=== PATIENT | female | born 1935 | race Caucasian/White ===

== ENCOUNTER 2022-11-25 17:31 | Inpatient (IN) | payer MEDICARE, OTHER ==
[~2022-11-25] VITALS: Ht 170.2 cm; Wt 63.5 kg
[2022-11-25] MEDS ORDERED: AMLO-212 PO (18:02)
[2022-11-25] MEDS ORDERED: MELO-107 PO (18:02)
[2022-11-25] MEDS ORDERED: DONE10TA44 PO (18:02)
[2022-11-25] MEDS ORDERED: TRAZ-182 PO (18:02)
[2022-11-25] MEDS ORDERED: ATOR10TA PO (18:02)
[2022-11-25] MEDS ORDERED: LEVO50TA8 PO (18:02)
[2022-11-25] MEDS ORDERED: HYDR-894 PO (18:02)
[2022-11-25] MEDS ORDERED: FURO40TA5 PO (18:02)
[2022-11-25] MEDS ORDERED: DULO60CA45 PO (18:02)
[2022-11-25] MEDS ORDERED: DESM0.1T PO (18:02)
[2022-11-25 18:31] LABS: BASOPHILS # (AUTO) 0.3 K/UL (0.0-0.2); BASOPHILS % (AUTO) 2.9 % (0.0-2.0); EOSINOPHILS # (AUTO) 0.3 K/uL (0.0-0.7); EOSINOPHILS % (AUTO) 2.5 % (0.0-7.0); LYMPHOCYTES # (AUTO) 2.4 K/uL (0.8-4.8); LYMPHOCYTES % (AUTO) 22.6 % (20.5-51.5); MEAN CORPUSCULAR HEMOGLOBIN 30.4 uug (24.7-32.8); MEAN CORPUSCULAR HGB CONC 33 g/dL (32.3-35.6); MEAN CORPUSCULAR VOLUME 91.1 fL (75.5-95.3); MONOCYTES # (AUTO) 0.5 K/uL (0.1-1.30); NEUTROPHILS # (AUTO) 7.1 K/uL (1.8-8.9); PLATELET COUNT (AUTO) 370 K/uL (179-408); RED BLOOD CELL COUNT(AUTO) 4.28 MIL/uL (3.63-4.92); RED CELL DISTRIBUTION WIDTH 12.9 % (12.3-17.7); WHITE BLOOD COUNT (AUTO) 10.6 K/uL (3.8-11.8)
[2022-11-25 18:37] LABS: DIFFERENTIAL COMMENT 1
[2022-11-25 18:39] LABS: CALCIUM 9.8 mg/dL (8.5-10.1); CARBON DIOXIDE 33 mmol/L (21-32); CHLORIDE 98 mmol/L (98-107); CREATININE 1.2 mg/dL (0.6-1.3); GLUCOSE 103 mg/dL (74-106); SODIUM SERUM 135 mmol/L (136-145); UREA NITROGEN, BLOOD 23 mg/dL (7-18)
[2022-11-25 18:41] LABS: AMMONIA < 10 umol/L (11-32)
[2022-11-25 18:43] LABS: ETHANOL < 3 MG/DL (0-10)
[2022-11-25 18:44] LABS: *BILIRUBIN,URIN NEGATIVE (NEGATIVE); *BLOOD, URINE NEGATIVE (NEGATIVE); *CLARITY,URINE CLEAR (CLEAR); *COLOR,URINE YELLOW (YELLOW); *KETONES,URINE NEGATIVE (NEGATIVE); *PROTEIN,URINE NEGATIVE (NEGATIVE); *UROBILINOGEN,URINE 0.2 E.U./dl (NORMAL); LEUKOCYTE ESTERASE ,URINE 2+ (NEGATIVE); NITRITE, URINE NEGATIVE (NEGATIVE); PH,URINE 7.5 (5.0-8.0); UGLUCOSE NEGATIVE (NEGATIVE)
[2022-11-25 18:45] LABS: RBC,URINE 0-3 /HPF (0-3)
[2022-11-25 18:53] LABS: *AMPHETAMINE, URINE NEGATIVE (NEGATIVE); *BARBITURATE, URINE NEGATIVE (NEGATIVE); *BENZODIAZEPINE, URINE NEGATIVE (NEGATIVE); *CANNABINOID, URINE NEGATIVE (NEGATIVE); *COCCAINE, URINE NEGATIVE (NEGATIVE); *OPIATE, URINE NEGATIVE (NEGATIVE); *PHENCYCLIDINE SCREEN,URINE NEGATIVE (NEGATIVE); FENTANYL, URINE NEGATIVE (NEGATIVE)
[2022-11-25 18:53] LABS: THYROID STIMULATING HORMONE 2.914 mIU/mL (0.358-3.740)
[2022-11-25 18:54] LABS: ACETAMINOPHEN < 2.0 ug/mL (10-30); ALANINE AMINOTRANSFERASE 18 U/L (14-59); ALBUMIN 3.3 g/dL (3.4-5.0); ALKALINE PHOSPHATASE 87 U/L (50-136); ASPARTATE AMINOTRANSFERASE 18 U/L (15-37); BILIRUBIN,DIRECT 0.1 mg/dL (0.0-0.2); BILIRUBIN,TOTAL 0.2 mg/dL (0.2-1.0); TOTAL PROTEIN, SERUM 7.2 g/dL (6.4-8.2)
[2022-11-25] MEDS ORDERED: ACETAMINOPHEN 325 MG TABLET PO PRN (21:15)
[2022-11-25] MEDS ORDERED: ONDANSETRON 4 MG/2 ML VIAL IV PRN (21:15)
[2022-11-25] MEDS ORDERED: REMEDY ESSENTIAL ZINC PASTE 113 GM TP PRN (21:15)
[2022-11-25] MEDS ORDERED: MAGNESIUM HYDROXIDE 30 ML LIQUID UDC PO PRN (21:15)
[2022-11-25] MEDS ORDERED: CEFTRIAXONE /D5W 50ML IVPB **ER PYXIS IV ONE (22:57)
[2022-11-25] MEDS: CEFTRIAXONE 1 G in IV DEXTROSE 5% 50 ML IV SCH (23:02)
[2022-11-26 02:00] LABS: ABG BASE EXCESS 5.7 mmol/L; ABG HCO3 30.3 mmol/L; ABG PH 7.456 (7.350-7.450); ABG PO2 81.1 mmHg (75.0-100.0); ABG SITE LEFT RADIAL; ABG TOTAL HEMOGLOBIN 13.2 G/dL (12.0-16.0); COHb 0.7 % (0.5-1.5); MetHb 0.3 % (0.0-1.5); O2Hb 95.7 % (94.0-97.0); VENT MODE ROOM AIR
[2022-11-26] MEDS ORDERED: LEVOTHYROXINE SODIUM 50 MCG TABLET ONE (05:55)
[2022-11-26] MEDS ORDERED: hydrALAZINE HCL 25 MG TABLET ONE (06:06)
[2022-11-26] MEDS: LEVOTHYROXINE SODIUM 50 MCG TABLET PO SCH (06:11)
[2022-11-26] MEDS: hydrALAZINE HCL 25 MG TABLET PO SCH ×3 (06:11→21:17)
[2022-11-26 07:04] LABS: BASOPHILS # (AUTO) 0.1 K/UL (0.0-0.2); BASOPHILS % (AUTO) 0.7 % (0.0-2.0); EOSINOPHILS # (AUTO) 0.3 K/uL (0.0-0.7); EOSINOPHILS % (AUTO) 3.7 % (0.0-7.0); HEMATOCRIT 34.4 % (31.2-41.9); HEMOGLOBIN 11.9 g/dL (10.9-14.3); LYMPHOCYTES # (AUTO) 2.5 K/uL (0.8-4.8); LYMPHOCYTES % (AUTO) 30.2 % (20.5-51.5); MEAN CORPUSCULAR HEMOGLOBIN 31.4 uug (24.7-32.8); MEAN CORPUSCULAR HGB CONC 35 g/dL (32.3-35.6); MEAN CORPUSCULAR VOLUME 90.5 fL (75.5-95.3); MONOCYTES # (AUTO) 0.8 K/uL (0.1-1.30); MONOCYTES % (AUTO) 9.1 % (0.0-11.0); NEUTROPHILS # (AUTO) 4.6 K/uL (1.8-8.9); NEUTROPHILS % (AUTO) 56.3 % (38.5-71.5); PLATELET COUNT (AUTO) 322 K/uL (179-408); RED CELL DISTRIBUTION WIDTH 12.8 % (12.3-17.7); WHITE BLOOD COUNT (AUTO) 8.3 K/uL (3.8-11.8)
[2022-11-26 07:25] LABS: DIFFERENTIAL COMMENT 1
[2022-11-26 07:56] LABS: CALCIUM 8.8 mg/dL (8.5-10.1); CARBON DIOXIDE 31 mmol/L (21-32); CHLORIDE 104 mmol/L (98-107); GLUCOSE 94 mg/dL (74-106); MAGNESIUM 2.2 mg/dL (1.8-2.4); PHOSPHOROUS 4.2 mg/dL (2.5-4.9); POTASSIUM 4.1 mmol/L (3.5-5.1); SODIUM SERUM 140 mmol/L (136-145); UREA NITROGEN, BLOOD 17 mg/dL (7-18)
[2022-11-26] MEDS ORDERED: FUROSEMIDE 40 MG TABLET PO SCH (09:00)
[2022-11-26] MEDS: AMLODIPINE 5 MG TABLET PO SCH ×2 (09:24→17:00)
[2022-11-26] MEDS: MELOXICAM 7.5 MG TABLET PO SCH (09:24)
[2022-11-26] MEDS: DONEPEZIL 10 MG TABLET PO SCH (09:25)
[2022-11-26] MEDS: DULOXETINE 60 MG CAPSULE.DR PO SCH (09:25)
[2022-11-26] MEDS: CLONIDINE HCL 0.1 MG TABLET PO PRN (09:28)
[2022-11-26 13:45] VITALS: BP 140/51; TEMP 98; O2SAT 96
[2022-11-26 14:40] VITALS: BP 135/81; TEMP 97.6
[2022-11-26] MEDS: DESMOPRESSIN 0.1 MG TABLET PO SCH (17:00)
[2022-11-26 17:05] VITALS: BP 155/59; TEMP 98.3; O2SAT 97
[2022-11-26 20:00] VITALS: BP 135/50; TEMP 97; O2SAT 97
[2022-11-26] MEDS: TRAZODONE 50 MG TABLET PO SCH (20:48)
[2022-11-26] MEDS: ATORVASTATIN 10 MG TABLET PO SCH (20:48)
[2022-11-26] MEDS ORDERED: CEFTRIAXONE /D5W 50ML IVPB **ER PYXIS IV ONE (20:59)
[2022-11-26] MEDS: CEFTRIAXONE 1 G in IV DEXTROSE 5% 50 ML IV SCH (21:11)
[2022-11-27 04:00] VITALS: BP 157/59; TEMP 97.9; O2SAT 98
[2022-11-27] MEDS: hydrALAZINE HCL 25 MG TABLET PO SCH ×3 (05:39→21:34)
[2022-11-27] MEDS: LEVOTHYROXINE SODIUM 50 MCG TABLET PO SCH (06:57)
[2022-11-27 07:21] LABS: BASOPHILS % (AUTO) 0.4 % (0.0-2.0); EOSINOPHILS # (AUTO) 0.4 K/uL (0.0-0.7); EOSINOPHILS % (AUTO) 4.6 % (0.0-7.0); HEMATOCRIT 34.2 % (31.2-41.9); HEMOGLOBIN 11.7 g/dL (10.9-14.3); LYMPHOCYTES # (AUTO) 2.9 K/uL (0.8-4.8); LYMPHOCYTES % (AUTO) 34.8 % (20.5-51.5); MEAN CORPUSCULAR HEMOGLOBIN 31.2 uug (24.7-32.8); MEAN CORPUSCULAR HGB CONC 34 g/dL (32.3-35.6); MEAN CORPUSCULAR VOLUME 91.3 fL (75.5-95.3); MONOCYTES # (AUTO) 0.7 K/uL (0.1-1.30); MONOCYTES % (AUTO) 7.8 % (0.0-11.0); NEUTROPHILS # (AUTO) 4.4 K/uL (1.8-8.9); NEUTROPHILS % (AUTO) 52.4 % (38.5-71.5); PLATELET COUNT (AUTO) 320 K/uL (179-408); RED BLOOD CELL COUNT(AUTO) 3.75 MIL/uL (3.63-4.92); RED CELL DISTRIBUTION WIDTH 13.3 % (12.3-17.7); WHITE BLOOD COUNT (AUTO) 8.4 K/uL (3.8-11.8)
[2022-11-27 07:30] LABS: DIFFERENTIAL COMMENT 1
[2022-11-27 07:31] LABS: CALCIUM 8.9 mg/dL (8.5-10.1); CARBON DIOXIDE 29 mmol/L (21-32); CHLORIDE 102 mmol/L (98-107); GLUCOSE 94 mg/dL (74-106); POTASSIUM 4.2 mmol/L (3.5-5.1); SODIUM SERUM 138 mmol/L (136-145); UREA NITROGEN, BLOOD 17 mg/dL (7-18)
[2022-11-27] MEDS: AMLODIPINE 5 MG TABLET PO SCH ×2 (08:51→17:25)
[2022-11-27] MEDS: DULOXETINE 60 MG CAPSULE.DR PO SCH (08:51)
[2022-11-27] MEDS: DONEPEZIL 10 MG TABLET PO SCH (08:51)
[2022-11-27] MEDS: MELOXICAM 7.5 MG TABLET PO SCH (08:51)
[2022-11-27 11:37] VITALS: BP 139/55; TEMP 97.6; O2SAT 95
[2022-11-27 15:31] VITALS: BP 142/51; TEMP 97.9; O2SAT 95
[2022-11-27] MEDS: DESMOPRESSIN 0.1 MG TABLET PO SCH (17:25)
[2022-11-27 20:00] VITALS: BP 143/41; TEMP 98.2; O2SAT 93
[2022-11-27] MEDS: TRAZODONE 50 MG TABLET PO SCH (21:20)
[2022-11-27] MEDS: CEFTRIAXONE 1 G in IV DEXTROSE 5% 50 ML IV SCH (21:20)
[2022-11-27] MEDS: ATORVASTATIN 10 MG TABLET PO SCH (21:20)
[2022-11-28] MEDS: hydrALAZINE HCL 25 MG TABLET PO SCH ×2 (06:05→13:48)
[2022-11-28] MEDS: LEVOTHYROXINE SODIUM 50 MCG TABLET PO SCH (07:07)
[2022-11-28 07:33] LABS: BASOPHILS % (AUTO) 0.3 % (0.0-2.0); EOSINOPHILS # (AUTO) 0.4 K/uL (0.0-0.7); EOSINOPHILS % (AUTO) 4.6 % (0.0-7.0); HEMATOCRIT 34.2 % (31.2-41.9); HEMOGLOBIN 11.6 g/dL (10.9-14.3); LYMPHOCYTES # (AUTO) 2.8 K/uL (0.8-4.8); MEAN CORPUSCULAR HEMOGLOBIN 30.8 uug (24.7-32.8); MEAN CORPUSCULAR HGB CONC 34 g/dL (32.3-35.6); MEAN CORPUSCULAR VOLUME 90.6 fL (75.5-95.3); MONOCYTES # (AUTO) 0.7 K/uL (0.1-1.30); MONOCYTES % (AUTO) 7.8 % (0.0-11.0); NEUTROPHILS # (AUTO) 4.6 K/uL (1.8-8.9); NEUTROPHILS % (AUTO) 54.3 % (38.5-71.5); PLATELET COUNT (AUTO) 324 K/uL (179-408); RED BLOOD CELL COUNT(AUTO) 3.78 MIL/uL (3.63-4.92); RED CELL DISTRIBUTION WIDTH 12.9 % (12.3-17.7); WHITE BLOOD COUNT (AUTO) 8.4 K/uL (3.8-11.8)
[2022-11-28 07:40] LABS: DIFFERENTIAL COMMENT 1
[2022-11-28 07:54] LABS: CALCIUM 8.6 mg/dL (8.5-10.1); CARBON DIOXIDE 29 mmol/L (21-32); CHLORIDE 103 mmol/L (98-107); GLUCOSE 95 mg/dL (74-106); POTASSIUM 4.2 mmol/L (3.5-5.1); SODIUM SERUM 138 mmol/L (136-145); UREA NITROGEN, BLOOD 16 mg/dL (7-18)
[2022-11-28 08:14] VITALS: BP 168/63; TEMP 98.1; O2SAT 94
[2022-11-28] MEDS: DULOXETINE 60 MG CAPSULE.DR PO SCH (08:53)
[2022-11-28] MEDS: AMLODIPINE 5 MG TABLET PO SCH (08:53)
[2022-11-28] MEDS: DONEPEZIL 10 MG TABLET PO SCH (08:53)
[2022-11-28] MEDS: MELOXICAM 7.5 MG TABLET PO SCH (08:53)
[2022-11-28] MEDS ORDERED: CEPH500T PO (10:32)
[2022-11-28 12:00] VITALS: BP 152/49; TEMP 97.7; O2SAT 95
[2022-11-28] MEDS: CLONIDINE HCL 0.1 MG TABLET PO PRN (14:53)
[2022-11-28 16:00] VITALS: BP 137/54; TEMP 97.8; O2SAT 95
== END 2022-11-28 16:55 | DRG 689 ==
LOC: ER 17:31 → TRANSITION 22:29 → MEDSURG3 11-26 08:28
PROVIDERS: ADMIT Internal Medicine; ATTEND Nurse Practitioner Acute Care
DX: N39.0 Urinary tract infection, site not specified (principal); G93.41 Metabolic encephalopathy; N17.0 Acute kidney failure with tubular necrosis; E44.0 Moderate protein-calorie malnutrition; F03.93 Unspecified dementia, unspecified severity, with mood disturbance; E23.2 Diabetes insipidus; I16.0 Hypertensive urgency; E78.5 Hyperlipidemia, unspecified; E86.0 Dehydration; E86.1 Hypovolemia; E88.09 Other disorders of plasma-protein metabolism, not elsewhere classified; F32.9 Major depressive disorder, single episode, unspecified; I10 Essential (primary) hypertension; K59.00 Constipation, unspecified; R26.89 Other abnormalities of gait and mobility; F03.90 Unspecified dementia, unspecified severity, without behavioral disturbance, psychotic disturbance, mood disturbance, and anxiety; Z68.21 Body mass index [BMI] 21.0-21.9, adult; Z91.81 History of falling; B96.89 Other specified bacterial agents as the cause of diseases classified elsewhere
CPT/HCPCS: 36415; 36600; 70450; 71045; 83605; 83735; 84100; 84443; 84484; 85025; 85730; 87040; 93005; A4663; G0378; G0480; J0696